=== PATIENT | female | born 1945 | race Caucasian/White ===

== ENCOUNTER 2017-05-06 15:35 | Emergency (ER) | payer OTHER ==
[~2017-05-06] VITALS: Ht 167.6 cm; Wt 80.3 kg
[~2017-05-06 15:35] MED LIST: ACID1TAB7 PO; ALEN70TA5 PO; AMIT10TA PO; AMOX1TAB12 PO; ASPI-496 PO; ASPI-515 PO; ATOR20TA9 PO; CALC-570 PO; CARV12.52 PO; CEFD300C37 PO; CLOP75TA PO; DIPH25TA PO; DOCU100T6 PO; DOXY25TA18 PO; FAMO20TA7 PO; GLUC1TAB55 PO; HYDR-3237 PO; IRBE150T49 PO; LEVO25TA4 PO; LEVO750T26 PO; LORA-446 PO; MELA5TAB19 PO; METF500T9 PO; METR500T PO; MULT-717 PO; OMEG300C PO; OXYC5CAP2 PO; PANT40TA5 PO; SIME125T10 PO; ZONI100C2 PO
[2017-05-06 15:40] VITALS: BP 102/66
[2017-05-06] MEDS ORDERED: KETOROLAC 30 MG/1 ML IVPush ONE (16:30)
[2017-05-06] MEDS ORDERED: SODIUM CHLORIDE FLUSH 10ML SYR IVF ONE (16:30)
[2017-05-06 17:05] LABS: HEMATOCRIT 39.1 % (34.6-47.8); HEMOGLOBIN 13.3 g/dL (11.7-16.4); WHITE BLOOD COUNT 4.8 x10^3/uL (3.4-10)
[2017-05-06] MEDS ORDERED: KETOROLAC 30 MG/1 ML ONE (17:06)
[2017-05-06 17:14] LABS: BLOOD UREA NITROGEN 15 mg/dL (7-18)
[2017-05-06 17:20] LABS: IS PT STATUS REG ER OR PRE ER? YES
[2017-05-06] MEDS ORDERED: HYDROcodone/APAP 5/325 TABLET PO STA (19:44)
[2017-05-06] MEDS ORDERED: HYDROcodone/APAP 5/325 TABLET ONE (20:23)
== END 2017-05-06 20:48 | disposition home or self-care (01) ==
LOC: ED 17:42
DX: G44.201 Tension-type headache, unspecified, intractable (principal); M54.42 Lumbago with sciatica, left side; E11.9 Type 2 diabetes mellitus without complications; I10 Essential (primary) hypertension; J44.9 Chronic obstructive pulmonary disease, unspecified; I25.10 Atherosclerotic heart disease of native coronary artery without angina pectoris
CPT/HCPCS: 36415; 70450; 72110; 80048; 81001; 82040; 84443; 84484; 85025; 85651; 87077; 87086; 87186; 93005; 96374; 99285; J1885

== ENCOUNTER → 2017-08-07 | Outpatient (CLI) | payer OTHER ==
[~2017-08-07] MED LIST changes: +REGADENOSON 0.4 MG/5 ML SYRINGE ONE
== END | disposition home or self-care (01) ==
LOC: CFH 11:44
PROVIDERS: ATTEND Internal Medicine Cardiovascular Disease
DX: I65.29 Occlusion and stenosis of unspecified carotid artery (principal); I10 Essential (primary) hypertension
CPT/HCPCS: 78452; 93017; A9502; J2785

== ENCOUNTER → 2017-08-09 | Outpatient (CLI) | payer OTHER ==
[~2017-08-09] MED LIST changes: -REGADENOSON 0.4 MG/5 ML SYRINGE ONE
== END | disposition home or self-care (01) ==
LOC: CFH 11:45
PROVIDERS: ATTEND Nurse Practitioner Family
DX: Z12.31 Encounter for screening mammogram for malignant neoplasm of breast (principal); Z13.820 Encounter for screening for osteoporosis; M81.0 Age-related osteoporosis without current pathological fracture; Z80.3 Family history of malignant neoplasm of breast
CPT/HCPCS: 77080; G0202

== ENCOUNTER → 2017-08-27 | Outpatient (CLI) | payer OTHER | END | disposition home or self-care (01) | LOC: CVU 13:03 | PROVIDERS: ATTEND Internal Medicine Cardiovascular Disease | DX: I07.1 Rheumatic tricuspid insufficiency (principal); I35.0 Nonrheumatic aortic (valve) stenosis; I65.29 Occlusion and stenosis of unspecified carotid artery; I10 Essential (primary) hypertension; E78.5 Hyperlipidemia, unspecified; I25.3 Aneurysm of heart | CPT/HCPCS: 93306; 93880 ==

== ENCOUNTER → 2017-11-07 | Outpatient (CLI) | payer OTHER | LOC: CFH 08:16 | PROVIDERS: ATTEND Nurse Practitioner Family | DX: J84.9 Interstitial pulmonary disease, unspecified (principal) | CPT/HCPCS: 71250 ==

== ENCOUNTER 2018-03-24 21:23 | Emergency (ER) | payer OTHER ==
[~2018-03-24] VITALS: Ht 167.6 cm; Wt 90.0 kg
[2018-03-24 22:01] LABS: BASOPHILS # (AUTO) 0.01 x10^3/uL (0-0.1); BASOPHILS % (AUTO) 0 % (0-1); EOSINOPHILS % (AUTO) 4 % (1-7); LYMPHOCYTES # (AUTO) 1.38 x10^3/uL (1-3.4); LYMPHOCYTES % (AUTO) 28 % (22-44); MD NO; MEAN CORPUSCULAR HEMOGLOBIN 33.1 pg (27.0-34.8); MEAN CORPUSCULAR HGB CONC 34.4 g/dL (32.4-35.8); MEAN PLATELET VOLUME 8.2 fL (7.4-10.4); MONOCYTES # (AUTO) 0.55 x10^3/uL (0.2-0.8); MONOCYTES % (AUTO) 11 % (2-9); NEUTROPHILS # (AUTO) 2.82 x10^3/uL (1.8-6.8); NEUTROPHILS % (AUTO) 57 % (42-75); PLATELET COUNT 181 x10^3/uL (130-400); RED BLOOD COUNT 3.72 x10^6/uL (3.82-5.3); RED CELL DISTRIBUTION WIDTH 13.8 % (9.6-15.2)
[2018-03-24 22:13] LABS: ALANINE AMINOTRANSFERASE 26 U/L (12-78); ALBUMIN 3.5 g/dL (3.4-5.0); ANION GAP 4 mmol/L (5-15); CALCIUM 8.6 mg/dL (8.5-10.1); CHLORIDE 104 mmol/L (98-107); CREATININE 1.04 mg/dL (0.55-1.02)
[2018-03-24 22:17] LABS: ALKALINE PHOSPHATASE 92 U/L (45-117); BILIRUBIN,TOTAL 0.7 mg/dL (0.2-1.0); TOTAL PROTEIN 6.5 g/dL (6.4-8.2); TROPONIN I < 0.015 ng/mL (0.000-0.045)
[2018-03-24 23:58] VITALS: BP 101/59
== END 2018-03-25 00:03 | disposition home or self-care (01) ==
LOC: ED 21:54
DX: S40.011A Contusion of right shoulder, initial encounter (principal); S70.02XA Contusion of left hip, initial encounter; G89.11 Acute pain due to trauma; M54.2 Cervicalgia; M54.5 Low back pain; J44.9 Chronic obstructive pulmonary disease, unspecified; K21.9 Gastro-esophageal reflux disease without esophagitis; E11.9 Type 2 diabetes mellitus without complications; Z86.718 Personal history of other venous thrombosis and embolism; Z86.73 Personal history of transient ischemic attack (TIA), and cerebral infarction without residual deficits; E78.5 Hyperlipidemia, unspecified; I25.10 Atherosclerotic heart disease of native coronary artery without angina pectoris; I10 Essential (primary) hypertension; Z90.49 Acquired absence of other specified parts of digestive tract; W01.0XXA Fall on same level from slipping, tripping and stumbling without subsequent striking against object, initial encounter; Y93.89 Activity, other specified; Y99.8 Other external cause status; Y92.009 Unspecified place in unspecified non-institutional (private) residence as the place of occurrence of the external cause
CPT/HCPCS: 36415; 70450; 72110; 72125; 80053; 84484; 85025; 93005; 99285

== ENCOUNTER 2018-05-31 16:57 | Emergency (ER) | payer OTHER ==
[~2018-05-31] VITALS: Ht 167.6 cm; Wt 86.7 kg
[2018-05-31 17:44] LABS: INTERNATIONAL NORMALIZED RATIO 1.06 (0.93-1.1); PROTHROMBIN TIME 10.9 Seconds (9.6-11.5)
[2018-05-31 17:45] LABS: ALBUMIN 3.7 g/dL (3.4-5.0); ANION GAP 7 mmol/L (5-15); CHLORIDE 105 mmol/L (98-107); CREATININE 0.89 mg/dL (0.55-1.02)
[2018-05-31 17:54] LABS: BASOPHILS % (AUTO) 0 % (0-1); EOSINOPHILS # (AUTO) 0.21 x10^3/uL (0-0.4); EOSINOPHILS % (AUTO) 2 % (1-7); LYMPHOCYTES # (AUTO) 1.65 x10^3/uL (1-3.4); LYMPHOCYTES % (AUTO) 18 % (22-44); MD NO; MEAN CORPUSCULAR HEMOGLOBIN 32.6 pg (27.0-34.8); MEAN CORPUSCULAR HGB CONC 33.8 g/dL (32.4-35.8); MEAN CORPUSCULAR VOLUME 96.6 fL (80-100); MEAN PLATELET VOLUME 8.8 fL (7.4-10.4); MONOCYTES # (AUTO) 0.64 x10^3/uL (0.2-0.8); MONOCYTES % (AUTO) 7 % (2-9); NEUTROPHILS # (AUTO) 6.56 x10^3/uL (1.8-6.8); NEUTROPHILS % (AUTO) 72 % (42-75); PLATELET COUNT 173 x10^3/uL (130-400); RED BLOOD COUNT 3.92 x10^6/uL (3.82-5.3); RED CELL DISTRIBUTION WIDTH 13.6 % (9.6-15.2)
[2018-05-31 20:18] VITALS: BP 124/53
== END 2018-05-31 20:21 | disposition home or self-care (01) ==
LOC: ED 19:29
DX: S16.1XXA Strain of muscle, fascia and tendon at neck level, initial encounter (principal); S20.219A Contusion of unspecified front wall of thorax, initial encounter; S60.222A Contusion of left hand, initial encounter; I10 Essential (primary) hypertension; E11.9 Type 2 diabetes mellitus without complications; J44.9 Chronic obstructive pulmonary disease, unspecified; K21.9 Gastro-esophageal reflux disease without esophagitis; I25.10 Atherosclerotic heart disease of native coronary artery without angina pectoris; E78.5 Hyperlipidemia, unspecified; W01.0XXA Fall on same level from slipping, tripping and stumbling without subsequent striking against object, initial encounter; Y93.01 Activity, walking, marching and hiking; Y92.410 Unspecified street and highway as the place of occurrence of the external cause; Y99.8 Other external cause status
CPT/HCPCS: 36415; 70450; 71111; 72125; 80048; 82040; 85025; 85610; 85730; 93005; 99285

== ENCOUNTER 2019-09-16 16:26 | Inpatient (IN) | payer MEDICARE, OTHER ==
[~2019-09-16] VITALS: Ht 167.6 cm; Wt 92.1 kg
[~2019-09-16 16:26] MED LIST changes: -ALEN70TA5 PO; +ALEN70TA6 PO; +ATOR20TA37 PO; -ATOR20TA9 PO; +MELA5TAB14 PO; -MELA5TAB19 PO; +METF500T12 PO; -METF500T9 PO
[2019-09-16] MEDS ORDERED: SODIUM CHLORIDE FLUSH 10ML SYR IVF ONE (16:30)
[2019-09-16] MEDS ORDERED: ONDANSETRON 2MG/ML, 2ML IVPush ONE (16:30)
[2019-09-16 16:55] LABS: BASOPHILS # (AUTO) 0.03 x10^3/uL (0-0.1); BASOPHILS % (AUTO) 0 % (0-1); EOSINOPHILS # (AUTO) 0.33 x10^3/uL (0-0.4); EOSINOPHILS % (AUTO) 4 % (1-7); LYMPHOCYTES # (AUTO) 3.01 x10^3/uL (1-3.4); LYMPHOCYTES % (AUTO) 39 % (22-44); MD NO; MEAN CORPUSCULAR HEMOGLOBIN 32.7 pg (27.0-34.8); MEAN CORPUSCULAR VOLUME 99.1 fL (80-100); MEAN PLATELET VOLUME 8.1 fL (7.4-10.4); MONOCYTES # (AUTO) 0.89 x10^3/uL (0.2-0.8); MONOCYTES % (AUTO) 11 % (2-9); NEUTROPHILS # (AUTO) 3.53 x10^3/uL (1.8-6.8); NEUTROPHILS % (AUTO) 45 % (42-75); PLATELET COUNT 209 x10^3/uL (130-400); RED BLOOD COUNT 4.52 x10^6/uL (3.82-5.3); RED CELL DISTRIBUTION WIDTH 14.1 % (9.6-15.2)
[2019-09-16 16:58] LABS: INTERNATIONAL NORMALIZED RATIO 0.96 (0.93-1.1); PROTHROMBIN TIME 10.2 Seconds (9.6-11.5)
[2019-09-16] MEDS ORDERED: PLEASE ENTER HEIGHT AND WEIGHT MC SCH (17:00)
[2019-09-16 17:01] LABS: ALBUMIN 3.3 g/dL (3.4-5.0); ANION GAP 9 mmol/L (5-15); CALCIUM 8.3 mg/dL (8.5-10.1); CHLORIDE 108 mmol/L (98-107)
[2019-09-16] MEDS ORDERED: RIVA20TA PO (17:01)
[2019-09-16 17:06] LABS: ALANINE AMINOTRANSFERASE 14 U/L (12-78); ALKALINE PHOSPHATASE 90 U/L (45-117); BILIRUBIN,TOTAL 0.6 mg/dL (0.2-1.0); CREATININE 0.95 mg/dL (0.55-1.02); TOTAL PROTEIN 6.7 g/dL (6.4-8.2); TROPONIN I < 0.015 ng/mL (0.000-0.045)
--- NOTE | 2019-09-16 18:00 | NUR ---
PT MOVED FROM TRAUMA 3 TO ROOM 15 AND CARE ASSUMED. PT ON ALL MONITORS, NSR, VSS, NAD NOTED. CALL LIGHT W/I REACH
--- NOTE | 2019-09-16 18:33 | NUR ---
dr bell spoke with dr lloyd
--- NOTE | 2019-09-16 18:58 | NUR ---
STEPHANAR RPT TO MARCIO RN'S.
[2019-09-16] MEDS ORDERED: RIVAROXABAN 10 MG TABLET PO ONE (19:00)
[2019-09-16] MEDS ORDERED: LORazepam 0.5MG TABLET PO PRN (20:00)
[2019-09-16] MEDS ORDERED: DOCUSATE 100 MG CAPSULE PO PRN (20:00)
[2019-09-16] MEDS ORDERED: GABAPENTIN 300 MG CAPSULE PO PRN (20:00)
[2019-09-16] MEDS ORDERED: ONDANSETRON 2MG/ML, 2ML IVPush PRN (20:00)
[2019-09-16] MEDS ORDERED: ACETAMINOPHEN 325 MG TABLET PO PRN (20:00)
[2019-09-16] MEDS ORDERED: LABETALOL 5MG/ML, 20ML IVPush PRN (20:00)
[2019-09-16 20:08] VITALS: BP 122/55
[2019-09-16] MEDS ORDERED: SIMETHICONE 125 MG CHEW TAB PO PRN ×2 (20:30→21:00)
[2019-09-16] MEDS: PANTOPROZOLE 40MG TABLET PO SCH (20:40)
[2019-09-16] MEDS: ATORVASTATIN 20 MG TABLET PO SCH (20:40)
[2019-09-16] MEDS: LACTOBACILLUS CHEW TABLET PO SCH (20:40)
[2019-09-16] MEDS: metFORMIN XR 500 MG TAB.ER.24H PO SCH (20:40)
[2019-09-16] MEDS: INSULIN LISPRO 100 UNITS/ML, PEN SQ-INSULIN SCH (20:52)
[2019-09-16] MEDS: ZONISAMIDE 50 MG CAPSULE PO SCH (21:00)
[2019-09-16] MEDS ORDERED: RIVAROXABAN 20 MG TABLET PO SCH (21:00)
[2019-09-16] MEDS: TEMAZEPAM 15 MG CAPSULE PO PRN (23:45)
[2019-09-16 23:58] LABS: TROPONIN I 0.061 ng/mL (0.000-0.045)
[2019-09-17 00:50] VITALS: BP 128/70
[2019-09-17] MEDS: IBUPROFEN 600 MG TABLET PO PRN (04:15)
[2019-09-17 05:33] LABS: BASOPHILS # (AUTO) 0.01 x10^3/uL (0-0.1); BASOPHILS % (AUTO) 0 % (0-1); EOSINOPHILS # (AUTO) 0.33 x10^3/uL (0-0.4); EOSINOPHILS % (AUTO) 5 % (1-7); LYMPHOCYTES # (AUTO) 2.06 x10^3/uL (1-3.4); LYMPHOCYTES % (AUTO) 32 % (22-44); MD NO; MEAN CORPUSCULAR HEMOGLOBIN 32.6 pg (27.0-34.8); MEAN CORPUSCULAR HGB CONC 32.9 g/dL (32.4-35.8); MEAN PLATELET VOLUME 8.3 fL (7.4-10.4); MONOCYTES # (AUTO) 0.63 x10^3/uL (0.2-0.8); MONOCYTES % (AUTO) 10 % (2-9); NEUTROPHILS % (AUTO) 53 % (42-75); PLATELET COUNT 188 x10^3/uL (130-400); RED CELL DISTRIBUTION WIDTH 14.1 % (9.6-15.2)
[2019-09-17 05:47] LABS: CHLORIDE 105 mmol/L (98-107)
[2019-09-17] MEDS: PANTOPROZOLE 40MG TABLET PO SCH ×2 (05:53→16:56)
[2019-09-17] MEDS: LEVOTHYROXINE 25 MCG TABLET PO SCH (05:53)
[2019-09-17 05:56] LABS: ANION GAP 6 mmol/L (5-15); CALCIUM 8.8 mg/dL (8.5-10.1); CREATININE 0.75 mg/dL (0.55-1.02); TROPONIN I 0.055 ng/mL (0.000-0.045)
[2019-09-17] MEDS: LIDODERM 5% PATCH TD PRN ×2 (06:03→06:08)
[2019-09-17] MEDS ORDERED: ALENDRONATE 70 MG TABLET PO SCH (06:30)
[2019-09-17] MEDS: INSULIN LISPRO 100 UNITS/ML, PEN SQ-INSULIN SCH ×4 (07:00→20:55)
[2019-09-17 07:48] VITALS: BP 122/85
[2019-09-17] MEDS ORDERED: TEMPLATE NON-FORMULARY MED. (Glucosamine/D3/Boswellia Serra** (Osteo Bi-Flex Caplet**) 1 T PO SCH (09:00)
[2019-09-17] MEDS: AMIODARONE 200 MG TABLET PO SCH ×3 (09:00→20:52)
[2019-09-17] MEDS: MULTIVITAMINS/MINERALS TABLET PO SCH (09:13)
[2019-09-17] MEDS: metFORMIN XR 500 MG TAB.ER.24H PO SCH ×2 (09:14→20:51)
[2019-09-17] MEDS: ASPIRIN 81 MG TABLET EC PO SCH (09:14)
[2019-09-17] MEDS: CALCIUM/VITAMIN D3 250-125 TABLET PO SCH (09:14)
[2019-09-17] MEDS: LACTOBACILLUS CHEW TABLET PO SCH ×3 (09:14→20:51)
[2019-09-17 12:37] VITALS: BP 128/85
[2019-09-17] MEDS: RIVAROXABAN 20 MG TABLET PO SCH (16:56)
[2019-09-17] MEDS ORDERED: RIVAROXABAN 15 MG TABLET PO SCH (17:00)
[2019-09-17] MEDS ORDERED: RIVAROXABAN 20 MG TABLET PO SCH (17:00)
[2019-09-17 19:30] VITALS: BP 134/81
[2019-09-17] MEDS: ATORVASTATIN 20 MG TABLET PO SCH (20:51)
[2019-09-17] MEDS: TEMAZEPAM 15 MG CAPSULE PO PRN (20:51)
[2019-09-17] MEDS: ZONISAMIDE 50 MG CAPSULE PO SCH (20:51)
[2019-09-18 01:22] VITALS: BP 132/62
[2019-09-18] MEDS: PANTOPROZOLE 40MG TABLET PO SCH ×2 (05:56→17:24)
[2019-09-18] MEDS: LEVOTHYROXINE 25 MCG TABLET PO SCH (05:56)
[2019-09-18 06:41] VITALS: BP 109/77
[2019-09-18] MEDS: INSULIN LISPRO 100 UNITS/ML, PEN SQ-INSULIN SCH ×3 (08:07→16:00)
[2019-09-18] MEDS ORDERED: AMIODARONE 200 MG TABLET PO SCH (09:00)
[2019-09-18] MEDS: metFORMIN XR 500 MG TAB.ER.24H PO SCH (09:34)
[2019-09-18] MEDS: CALCIUM/VITAMIN D3 250-125 TABLET PO SCH (09:34)
[2019-09-18] MEDS: ASPIRIN 81 MG TABLET EC PO SCH (09:34)
[2019-09-18] MEDS: MULTIVITAMINS/MINERALS TABLET PO SCH (09:34)
[2019-09-18] MEDS: LACTOBACILLUS CHEW TABLET PO SCH ×2 (09:34→17:26)
[2019-09-18] MEDS: LIDODERM 5% PATCH TD PRN (12:30)
[2019-09-18] MEDS: IBUPROFEN 600 MG TABLET PO PRN (12:31)
[2019-09-18 13:30] VITALS: BP 104/69
[2019-09-18] MEDS ORDERED: AMIO200T42 PO (14:00)
[2019-09-18] MEDS ORDERED: ATOR20TA37 PO (16:14)
[2019-09-18] MEDS ORDERED: RIVA20TA PO (16:14)
[2019-09-18] MEDS ORDERED: ZONI100C2 PO (16:14)
[2019-09-18] MEDS ORDERED: ALEN70TA6 PO (16:14)
[2019-09-18] MEDS ORDERED: LEVO25TA4 PO (16:14)
[2019-09-18] MEDS ORDERED: METF500T12 PO (16:14)
[2019-09-18] MEDS: RIVAROXABAN 20 MG TABLET PO SCH (17:26)
== END 2019-09-18 18:28 | disposition home health service (06) | DRG 309 ==
LOC: ED 18:10 → EDIP 18:16 → ED 19:16 → 5SO 19:53
PROVIDERS: ADMIT Internal Medicine; ATTEND Hospitalist
DX: I48.0 Paroxysmal atrial fibrillation (principal); D68.59 Other primary thrombophilia; I25.3 Aneurysm of heart; I50.32 Chronic diastolic (congestive) heart failure; F33.9 Major depressive disorder, recurrent, unspecified; J98.11 Atelectasis; E78.5 Hyperlipidemia, unspecified; E11.65 Type 2 diabetes mellitus with hyperglycemia; E11.51 Type 2 diabetes mellitus with diabetic peripheral angiopathy without gangrene; E03.9 Hypothyroidism, unspecified; G47.33 Obstructive sleep apnea (adult) (pediatric); I11.0 Hypertensive heart disease with heart failure; I25.10 Atherosclerotic heart disease of native coronary artery without angina pectoris; I34.0 Nonrheumatic mitral (valve) insufficiency; K21.9 Gastro-esophageal reflux disease without esophagitis; M81.0 Age-related osteoporosis without current pathological fracture; Z79.01 Long term (current) use of anticoagulants; Z80.0 Family history of malignant neoplasm of digestive organs; Z86.73 Personal history of transient ischemic attack (TIA), and cerebral infarction without residual deficits; Z90.710 Acquired absence of both cervix and uterus; Z99.81 Dependence on supplemental oxygen; E87.6 Hypokalemia; C44.90 Unspecified malignant neoplasm of skin, unspecified; I70.8 Atherosclerosis of other arteries; Z87.891 Personal history of nicotine dependence; R00.0 Tachycardia, unspecified
CPT/HCPCS: 36415; 71045; 80048; 80053; 82962; 83735; 83880; 84439; 84443; 84484; 85025; 85610; 93005; 93306; 93356; 96374; G0378; J2405

== ENCOUNTER 2020-02-02 03:16 | Emergency (ER) | payer MEDICARE ==
[~2020-02-02] VITALS: Ht 167.6 cm; Wt 84.0 kg
[~2020-02-02 03:16] MED LIST changes: +AMIO200T42 PO; +METF-754 PO; -METF500T12 PO; +RIVA20TA PO; -ZONI100C2 PO; +ZONI100C29 PO
[2020-02-02 03:21] VITALS: BP 143/56
[2020-02-02] MEDS ORDERED: LIDOCAINE-MPF 1%, 5ML ONE (03:26)
[2020-02-02] MEDS ORDERED: LIDOCAINE-MPF 1%, 5ML INFIL ONE (03:30)
[2020-02-02] MEDS ORDERED: DIPH,PERTUSS(ACELL),TET VAC/PF 0.5 ML IM-VACC ONE ×2 (03:30→05:14)
--- NOTE | 2020-02-02 04:15 | NUR ---
EMT AT BEDSIDE CLEANING WOUND
--- NOTE | 2020-02-02 04:22 | NUR ---
XRAY AT BEDSIDE WITH PATIENT.
--- NOTE | 2020-02-02 04:41 | NUR ---
PATIENT UP TO RESTROOM, STEADY GAIT. TOLERATED WELL.
[2020-02-02] MEDS ORDERED: ACETAMINOPHEN 325 MG TABLET ONE (04:51)
--- NOTE | 2020-02-02 04:54 | NUR ---
PROVIDER AT BEDSIDE WITH PATIENT
--- NOTE | 2020-02-02 04:57 | NUR ---
PATIENT GIVEN TYLENOL 650MG PER PROVIDER VERBAL ORDER.
--- NOTE | 2020-02-02 05:24 | NUR ---
EKG COMPLETED AT BEDSIDE. PATIENT TOLERATED WELL.
== END 2020-02-02 06:21 ==
LOC: ED 06:15
DX: S68.112A Complete traumatic metacarpophalangeal amputation of right middle finger, initial encounter (principal); I10 Essential (primary) hypertension; E11.9 Type 2 diabetes mellitus without complications; I48.91 Unspecified atrial fibrillation; W23.1XXA Caught, crushed, jammed, or pinched between stationary objects, initial encounter; Y93.89 Activity, other specified; Y92.59 Other trade areas as the place of occurrence of the external cause; Y99.8 Other external cause status
CPT/HCPCS: 12001; 90471; 90715; 93005; 99283

== ENCOUNTER 2020-02-03 16:04 | Emergency (ER) | payer MEDICARE ==
[~2020-02-03] VITALS: Ht 167.6 cm; Wt 91.2 kg
[2020-02-03 16:05] VITALS: BP 158/71
--- NOTE | 2020-02-03 16:29 | NUR ---
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 Bleeding however has not stopped. was seen here. LAC DRESSED BY PROVIDER/SPLINT APPLIED. NO NEED TO UPDATE TDAP (RECENTLY IMMUNIZED)
== END 2020-02-03 17:01 | disposition home or self-care (01) ==
LOC: ED 16:52
DX: S61.212A Laceration without foreign body of right middle finger without damage to nail, initial encounter (principal); K21.9 Gastro-esophageal reflux disease without esophagitis; I48.91 Unspecified atrial fibrillation; J44.9 Chronic obstructive pulmonary disease, unspecified; I25.10 Atherosclerotic heart disease of native coronary artery without angina pectoris; E78.5 Hyperlipidemia, unspecified; Z90.49 Acquired absence of other specified parts of digestive tract; Z86.73 Personal history of transient ischemic attack (TIA), and cerebral infarction without residual deficits; Z87.891 Personal history of nicotine dependence; Z86.718 Personal history of other venous thrombosis and embolism; X58.XXXA Exposure to other specified factors, initial encounter; Y93.89 Activity, other specified; Y92.89 Other specified places as the place of occurrence of the external cause; Y99.8 Other external cause status
CPT/HCPCS: 29130; 99283

== ENCOUNTER 2020-04-16 20:50 | Inpatient (IN) | payer MEDICARE ==
[~2020-04-16] VITALS: Ht 167.6 cm; Wt 97.0 kg
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
[2020-04-16 21:43] LABS: BASOPHILS # (AUTO) 0.02 x10^3/uL (0-0.1); BASOPHILS % (AUTO) 0 % (0-1); EOSINOPHILS % (AUTO) 3 % (1-7); LYMPHOCYTES # (AUTO) 1.56 x10^3/uL (1-3.4); LYMPHOCYTES % (AUTO) 25 % (22-44); MD NO; MEAN CORPUSCULAR HEMOGLOBIN 33.2 pg (27.0-34.8); MEAN CORPUSCULAR HGB CONC 33.5 g/dL (32.4-35.8); MEAN CORPUSCULAR VOLUME 99.1 fL (80-100); MEAN PLATELET VOLUME 8.8 fL (7.4-10.4); MONOCYTES # (AUTO) 0.65 x10^3/uL (0.2-0.8); MONOCYTES % (AUTO) 10 % (2-9); NEUTROPHILS # (AUTO) 3.81 x10^3/uL (1.8-6.8); NEUTROPHILS % (AUTO) 61 % (42-75); PLATELET COUNT 217 x10^3/uL (130-400); RED BLOOD COUNT 3.99 x10^6/uL (3.82-5.3); RED CELL DISTRIBUTION WIDTH 13.8 % (9.6-15.2)
[2020-04-16 21:52] LABS: ALANINE AMINOTRANSFERASE 24 U/L (12-78); ALBUMIN 3.6 g/dL (3.4-5.0); ANION GAP 4 mmol/L (5-15); CALCIUM 8.8 mg/dL (8.5-10.1); CHLORIDE 105 mmol/L (98-107); CREATININE 1.06 mg/dL (0.55-1.02)
[2020-04-16 21:56] LABS: ALKALINE PHOSPHATASE 84 U/L (45-117); BILIRUBIN,TOTAL 0.6 mg/dL (0.2-1.0); TOTAL PROTEIN 6.7 g/dL (6.4-8.2); TROPONIN I < 0.015 ng/mL (0.000-0.045)
[2020-04-16] MEDS ORDERED: LORazepam 0.5MG TABLET ONE (22:27)
[2020-04-16] MEDS ORDERED: LORazepam 2 MG/ML, 1ML IVPush ONE (22:30)
[2020-04-16] MEDS ORDERED: LORazepam 0.5MG TABLET PO ONE (22:30)
--- NOTE | 2020-04-16 22:30 | NUR ---
RECEIVED ORDER FOR ATIVAN IV, NOTIFIED PT DOES NOT HAVE PIV IN PLACE. RECEIVED VERBAL ORDER FOR ATIVAN 0.5MG TAB PO ONCE. ORDER PLACED AND CARRIED OUT.
--- NOTE | 2020-04-16 23:00 | NUR ---
REPORT GIVEN TO ANA LAUREN.
[2020-04-16] MEDS ORDERED: hydrALAzine 20 MG/ML, 1ML IVPush PRN (23:30)
[2020-04-16] MEDS ORDERED: SIMETHICONE 125 MG CHEW TAB PO PRN (23:30)
[2020-04-16] MEDS ORDERED: ONDANSETRON 2MG/ML, 2ML IVPush PRN (23:30)
[2020-04-16] MEDS ORDERED: DOXYCYCLINE 100 MG in DEXTROSE 5% 250 ML IV SCH (23:30)
[2020-04-16] MEDS ORDERED: morphine SULFATE 10 MG/ML, 1ML IVPush PRN (23:30)
[2020-04-17 00:02] VITALS: BP 95/60
[2020-04-17] MEDS: AMIODARONE 200 MG TABLET PO SCH ×3 (00:58→20:24)
[2020-04-17] MEDS: PANTOPRAZOLE 40MG TABLET PO SCH ×3 (00:58→20:24)
[2020-04-17] MEDS: DOXYLAMINE 25MG TABLET PO SCH ×2 (00:58→20:24)
[2020-04-17] MEDS: ATORVASTATIN 20 MG TABLET PO SCH ×2 (00:59→20:24)
[2020-04-17] MEDS: ZONISAMIDE 50 MG CAPSULE PO SCH ×2 (01:01→20:24)
[2020-04-17] MEDS: CEFTRIAXONE PMX 1GM/50ML 50 ML IV SCH (01:05)
[2020-04-17 02:00] VITALS: BP 95/60
[2020-04-17 04:25] LABS: BASOPHILS # (AUTO) 0.02 x10^3/uL (0-0.1); BASOPHILS % (AUTO) 0 % (0-1); EOSINOPHILS % (AUTO) 3 % (1-7); LYMPHOCYTES # (AUTO) 1.46 x10^3/uL (1-3.4); LYMPHOCYTES % (AUTO) 24 % (22-44); MD NO; MEAN CORPUSCULAR HEMOGLOBIN 32.7 pg (27.0-34.8); MEAN CORPUSCULAR HGB CONC 32.9 g/dL (32.4-35.8); MEAN CORPUSCULAR VOLUME 99.3 fL (80-100); MEAN PLATELET VOLUME 9.1 fL (7.4-10.4); MONOCYTES # (AUTO) 0.55 x10^3/uL (0.2-0.8); MONOCYTES % (AUTO) 9 % (2-9); NEUTROPHILS # (AUTO) 3.83 x10^3/uL (1.8-6.8); NEUTROPHILS % (AUTO) 63 % (42-75); PLATELET COUNT 182 x10^3/uL (130-400); RED BLOOD COUNT 3.92 x10^6/uL (3.82-5.3); RED CELL DISTRIBUTION WIDTH 13.4 % (9.6-15.2)
[2020-04-17 04:34] LABS: ANION GAP 3 mmol/L (5-15); CALCIUM 8.7 mg/dL (8.5-10.1); CHLORIDE 106 mmol/L (98-107); CHOLESTEROL, TOTAL 135 mg/dL (140-239)
[2020-04-17 04:38] LABS: CHOL/HDL RATIO 3.1; HDL CHOL % 33 % (28-40); HDL CHOLESTEROL (DIRECT) 44 mg/dL (40-60); LDL CHOLESTEROL,CALCULATED 71 mg/dL (54-169); LDL/HDL RATIO 1.6 (0.5-3.0); TRIGLYCERIDES 100 mg/dL (50-200); TROPONIN I < 0.015 ng/mL (0.000-0.045); VLDL CHOLESTEROL 20 mg/dL (0-25)
[2020-04-17 06:54] VITALS: BP 105/69
[2020-04-17] MEDS: INSULIN LISPRO 100 UNITS/ML, PEN SQ-INSULIN SCH ×4 (07:00→20:25)
[2020-04-17] MEDS: ASPIRIN 81 MG TABLET EC PO SCH (08:24)
[2020-04-17] MEDS: LEVOTHYROXINE 25 MCG TABLET PO SCH (08:27)
[2020-04-17 08:29] VITALS: BP 108/70
[2020-04-17] MEDS: SIMETHICONE 125 MG CHEW TAB PO SCH ×4 (10:25→20:24)
[2020-04-17 11:57] LABS: TROPONIN I < 0.015 ng/mL (0.000-0.045)
[2020-04-17 16:37] VITALS: BP 102/49
[2020-04-17 20:09] VITALS: BP 100/65
[2020-04-17] MEDS: DOXYCYCLINE 100MG TABLET PO SCH (20:24)
[2020-04-17] MEDS: RIVAROXABAN 20 MG TABLET PO SCH (20:24)
[2020-04-18 00:07] VITALS: BP 91/63
[2020-04-18] MEDS: ACETAMINOPHEN 325 MG TABLET PO PRN ×2 (00:13→14:40)
[2020-04-18 05:44] VITALS: BP 146/69
[2020-04-18] MEDS: INSULIN LISPRO 100 UNITS/ML, PEN SQ-INSULIN SCH ×4 (07:00→21:22)
[2020-04-18 07:36] VITALS: BP 124/81
[2020-04-18] MEDS: PANTOPRAZOLE 40MG TABLET PO SCH ×2 (07:50→21:19)
[2020-04-18] MEDS: DOXYCYCLINE 100MG TABLET PO SCH ×2 (07:50→21:21)
[2020-04-18] MEDS: AMIODARONE 200 MG TABLET PO SCH ×2 (07:51→21:18)
[2020-04-18] MEDS: SIMETHICONE 125 MG CHEW TAB PO SCH ×4 (07:51→21:16)
[2020-04-18] MEDS: LEVOTHYROXINE 25 MCG TABLET PO SCH (07:51)
[2020-04-18] MEDS: ASPIRIN 81 MG TABLET EC PO SCH (07:51)
[2020-04-18] MEDS ORDERED: METH4TAB2 PO ×2 (09:41)
[2020-04-18] MEDS ORDERED: CEFD300C37 PO ×2 (09:41)
[2020-04-18] MEDS ORDERED: LACT1CAP35 PO (09:41)
[2020-04-18] MEDS ORDERED: DOXY100T PO ×2 (09:41)
[2020-04-18 12:13] VITALS: BP 100/66
[2020-04-18 15:34] VITALS: BP 94/57
[2020-04-18 16:16] LABS: TROPONIN I < 0.015 ng/mL (0.000-0.045)
[2020-04-18 21:04] VITALS: BP 92/52
[2020-04-18] MEDS: ZONISAMIDE 50 MG CAPSULE PO SCH (21:17)
[2020-04-18] MEDS: DOXYLAMINE 25MG TABLET PO SCH (21:18)
[2020-04-18] MEDS: RIVAROXABAN 20 MG TABLET PO SCH (21:19)
[2020-04-18] MEDS: ATORVASTATIN 20 MG TABLET PO SCH (21:22)
[2020-04-18 21:30] LABS: TROPONIN I < 0.015 ng/mL (0.000-0.045)
[2020-04-18] MEDS: CEFTRIAXONE PMX 1GM/50ML 50 ML IV SCH ×2 (23:33)
[2020-04-19 01:30] VITALS: BP 91/65
[2020-04-19 06:37] VITALS: BP 102/66
[2020-04-19] MEDS: LEVOTHYROXINE 25 MCG TABLET PO SCH (09:04)
[2020-04-19] MEDS: SIMETHICONE 125 MG CHEW TAB PO SCH ×4 (09:04→20:28)
[2020-04-19] MEDS: AMIODARONE 200 MG TABLET PO SCH ×2 (09:04→20:29)
[2020-04-19] MEDS: PANTOPRAZOLE 40MG TABLET PO SCH ×2 (09:04→20:29)
[2020-04-19] MEDS: DOXYCYCLINE 100MG TABLET PO SCH ×2 (09:04→20:29)
[2020-04-19] MEDS: ASPIRIN 81 MG TABLET EC PO SCH (09:05)
[2020-04-19] MEDS: INSULIN LISPRO 100 UNITS/ML, PEN SQ-INSULIN SCH ×4 (09:07→21:00)
[2020-04-19 12:44] VITALS: BP 122/81
[2020-04-19] MEDS: SERTRALINE 100MG TABLET PO SCH (16:22)
[2020-04-19 20:00] VITALS: BP 86/54
[2020-04-19] MEDS: RIVAROXABAN 20 MG TABLET PO SCH (20:28)
[2020-04-19] MEDS: DOXYLAMINE 25MG TABLET PO SCH (20:28)
[2020-04-19] MEDS: ZONISAMIDE 50 MG CAPSULE PO SCH (20:28)
[2020-04-19] MEDS: ATORVASTATIN 20 MG TABLET PO SCH (20:29)
[2020-04-19] MEDS: CEFTRIAXONE PMX 1GM/50ML 50 ML IV SCH (23:28)
[2020-04-20 01:58] VITALS: BP 104/63
[2020-04-20] MEDS: INSULIN LISPRO 100 UNITS/ML, PEN SQ-INSULIN SCH ×2 (07:00→11:31)
[2020-04-20 09:30] VITALS: BP 133/61
[2020-04-20] MEDS: LEVOTHYROXINE 25 MCG TABLET PO SCH (09:41)
[2020-04-20] MEDS: PANTOPRAZOLE 40MG TABLET PO SCH (09:41)
[2020-04-20] MEDS: SERTRALINE 100MG TABLET PO SCH (09:42)
[2020-04-20] MEDS: SIMETHICONE 125 MG CHEW TAB PO SCH (09:42)
[2020-04-20] MEDS: DOXYCYCLINE 100MG TABLET PO SCH (09:42)
[2020-04-20] MEDS: ASPIRIN 81 MG TABLET EC PO SCH (09:42)
[2020-04-20] MEDS: AMIODARONE 200 MG TABLET PO SCH (09:42)
[2020-04-20] MEDS ORDERED: SERT100T32 PO (13:09)
[2020-04-20] MEDS ORDERED: CEFD300C37 PO (13:32)
[2020-04-20] MEDS ORDERED: DOXY100T PO (13:32)
== END 2020-04-20 14:19 | DRG 190 ==
LOC: ED 22:56 → EDIP 23:28 → 5SO 23:56 → OBSVTOIN 04-19 13:58
PROVIDERS: ADMIT Family Medicine; ATTEND Family Medicine
DX: J44.0 Chronic obstructive pulmonary disease with (acute) lower respiratory infection (principal); J18.9 Pneumonia, unspecified organism; F33.1 Major depressive disorder, recurrent, moderate; I50.32 Chronic diastolic (congestive) heart failure; J96.10 Chronic respiratory failure, unspecified whether with hypoxia or hypercapnia; J44.1 Chronic obstructive pulmonary disease with (acute) exacerbation; I25.10 Atherosclerotic heart disease of native coronary artery without angina pectoris; R00.2 Palpitations; F41.9 Anxiety disorder, unspecified; I11.0 Hypertensive heart disease with heart failure; I48.0 Paroxysmal atrial fibrillation; E78.5 Hyperlipidemia, unspecified; E03.9 Hypothyroidism, unspecified; Z80.0 Family history of malignant neoplasm of digestive organs; E11.9 Type 2 diabetes mellitus without complications; Z83.3 Family history of diabetes mellitus; Z82.49 Family history of ischemic heart disease and other diseases of the circulatory system; I35.8 Other nonrheumatic aortic valve disorders; I49.3 Ventricular premature depolarization; Z86.73 Personal history of transient ischemic attack (TIA), and cerebral infarction without residual deficits; Z87.891 Personal history of nicotine dependence; K21.9 Gastro-esophageal reflux disease without esophagitis; Z86.718 Personal history of other venous thrombosis and embolism; Z90.49 Acquired absence of other specified parts of digestive tract; M81.0 Age-related osteoporosis without current pathological fracture; I34.0 Nonrheumatic mitral (valve) insufficiency
CPT/HCPCS: 36415; 71045; 80048; 80053; 80061; 82962; 83036; 83735; 83880; 84100; 84443; 84484; 85025; 93005; 93306; G0378; J0696; J7060; J1815; J7512

== ENCOUNTER 2020-06-24 08:12 | Outpatient (CLI) | payer MEDICARE ==
[~2020-06-24 08:12] MED LIST changes: -ALEN70TA6 PO; +ALEN70TA66 PO; +DOXY100T PO; +LACT1CAP35 PO; +METH4TAB2 PO; -PANT40TA5 PO; +PANT40TA6 PO; +SERT100T32 PO
[2020-06-24] MEDS ORDERED: OMNIPAQUE 350 MG/ML, 100ML BOTTLE ONE (11:18)
== END 2020-06-24 23:59 | disposition home or self-care (01) ==
LOC: CFH 08:12
PROVIDERS: ATTEND Family Medicine
DX: Z12.31 Encounter for screening mammogram for malignant neoplasm of breast (principal); N95.8 Other specified menopausal and perimenopausal disorders; I65.23 Occlusion and stenosis of bilateral carotid arteries; M81.0 Age-related osteoporosis without current pathological fracture
CPT/HCPCS: 70498; 77063; 77067; 77080; 82565; Q9967

== ENCOUNTER 2020-12-14 17:16 | Observation (INO) | payer MEDICARE ==
[~2020-12-14] VITALS: Ht 167.6 cm; Wt 111.5 kg
[~2020-12-14 17:16] MED LIST changes: -ALEN70TA66 PO; +ALEN70TA77 PO; -ASPI-515 PO; +ASPI-963 PO
--- NOTE | 2020-12-14 18:29 | NUR ---
PT CAME IN CO "HEADACHE AND NOT FEELING WELL. PT STATES SHE HAD A GLF FALL A WEEK AGO AND DOESNT KNOW IF SHE LOC OR NOT. PT WAS ADMITTED TO [facility] FOR A NIGHT FOR OBS" . PT HAS HX OF AFIB. TAKES ELIQUIS. EKG COMPLETE. PT RESTING IN [facility].
[2020-12-14] MEDS ORDERED: SODIUM CHLORIDE 0.9% 1,000ML IVBOLUS ONE (18:30)
[2020-12-14] MEDS ORDERED: ALBUTEROL/IPRATROPIUM 2.5MG/0.5MG, 3 ML NPPB ONE (18:30)
[2020-12-14] MEDS ORDERED: ALBUTEROL SULFATE 2.5MG/0.5ML ONE ×2 (18:32→18:33)
--- NOTE | 2020-12-14 18:45 | NUR ---
PT MEDICATED PER MAR
[2020-12-14] MEDS ORDERED: SODIUM CHLORIDE FLUSH 10ML SYR IVF ONE (19:00)
[2020-12-14 19:01] LABS: BASOPHILS % (AUTO) 1 % (0-1); EOSINOPHILS % (AUTO) 4 % (1-7); LYMPHOCYTES % (AUTO) 33 % (22-44); MEAN CORPUSCULAR HEMOGLOBIN 33.6 pg (27.0-34.8); MEAN CORPUSCULAR HGB CONC 33.6 g/dL (32.4-35.8); MEAN PLATELET VOLUME 9.1 fL (7.4-10.4); MONOCYTES % (AUTO) 10 % (2-9); NEUTROPHILS % (AUTO) 52 % (42-75); PLATELET COUNT 200 x10^3/uL (130-400); RED BLOOD COUNT 4.07 x10^6/uL (3.82-5.3); RED CELL DISTRIBUTION WIDTH 13.2 % (9.6-15.2)
[2020-12-14 19:13] LABS: ALBUMIN 3.8 g/dL (3.4-5.0); ANION GAP 4 mmol/L (5-15); CALCIUM 8.6 mg/dL (8.5-10.1); CHLORIDE 106 mmol/L (98-107); MD NO
[2020-12-14 19:19] LABS: ALANINE AMINOTRANSFERASE 25 U/L (12-78); ALKALINE PHOSPHATASE 74 U/L (45-117); BILIRUBIN,TOTAL 0.7 mg/dL (0.2-1.0); CREATININE 0.84 mg/dL (0.55-1.02)
[2020-12-14 19:50] LABS: MICROSCOPIC NOT IND
--- NOTE | 2020-12-14 20:25 | NUR ---
TOOK PT FOR A ROAD TEST WITHOUT O2. PT O2 SAT DROPPED TO 83-85%. PT REPORTS FEELING WEAK AND SOB DURING ROAD TEST. BP WHILE RESTING IN GURNEY 101/67. UPON STANDING BP DROPPED TO 86/63 AND AFTER A MINUTE BP JARED TO 97/67 WHILE STANDING. PT RESTING IN GURNEY. SIDE RAILS UP. IS BEDSIDE FOR [facility]
[2020-12-14] MEDS ORDERED: SODIUM CHLORIDE 0.9% 1,000 ML IV ONE (20:30)
[2020-12-14] MEDS ORDERED: POLYETHYLENE GLYCOL 17 GM PACKET PO PRN (21:00)
[2020-12-14] MEDS ORDERED: SODIUM CHLORIDE 0.9% 1,000 ML IV SCH (21:00)
[2020-12-14] MEDS ORDERED: SIMETHICONE 125 MG CHEW TAB PO PRN (21:00)
[2020-12-14] MEDS ORDERED: ONDANSETRON ODT 4 MG PO PRN (21:00)
[2020-12-14] MEDS ORDERED: BISACODYL 10 MG SUPP PR PRN (21:00)
[2020-12-14] MEDS ORDERED: RIVAROXABAN 20 MG TABLET PO SCH (21:00)
[2020-12-14] MEDS ORDERED: RIVAROXABAN 15 MG TABLET PO SCH (22:18)
[2020-12-14] MEDS ORDERED: HYDROcodone/APAP 5/325 TABLET PO PRN (23:30)
[2020-12-14] MEDS: LACTOBACILLUS CHEW TABLET PO SCH (23:38)
[2020-12-14] MEDS: ATORVASTATIN 20 MG TABLET PO SCH (23:38)
[2020-12-14] MEDS: metFORMIN XR 500 MG TAB.ER.24H PO SCH (23:38)
[2020-12-14] MEDS: AMIODARONE 200 MG TABLET PO SCH (23:38)
[2020-12-14] MEDS: PANTOPRAZOLE 40MG TABLET PO SCH (23:41)
[2020-12-15 00:09] VITALS: BP 86/55
[2020-12-15 01:04] VITALS: BP 126/79
[2020-12-15] MEDS ORDERED: OXYC5TAB2 PO (02:03)
[2020-12-15] MEDS ORDERED: CHOL500051 PO (02:03)
[2020-12-15] MEDS ORDERED: PROP1DRO6 OTIC (02:03)
[2020-12-15] MEDS ORDERED: GABA-826 PO (02:03)
[2020-12-15] MEDS ORDERED: ACET500T76 PO (02:03)
[2020-12-15] MEDS ORDERED: LEVO100V8 PO (02:03)
[2020-12-15] MEDS ORDERED: BACL-19 PO (02:03)
[2020-12-15] MEDS ORDERED: GLUC-165 PO (02:03)
[2020-12-15] MEDS ORDERED: LOPE-114 PO (02:03)
[2020-12-15] MEDS: ACETAMINOPHEN 325 MG TABLET PO PRN ×2 (04:26→12:19)
[2020-12-15 06:26] VITALS: BP 130/77
[2020-12-15] MEDS ORDERED: ALENDRONATE 70 MG TABLET PO SCH (06:30)
[2020-12-15] MEDS: PANTOPRAZOLE 40MG TABLET PO SCH ×2 (06:39→16:26)
[2020-12-15] MEDS ORDERED: BISACODYL 10 MG SUPP PR ONE (07:30)
[2020-12-15] MEDS: SERTRALINE 100MG TABLET PO SCH (08:23)
[2020-12-15] MEDS: LACTOBACILLUS CHEW TABLET PO SCH ×3 (08:23→22:01)
[2020-12-15] MEDS: metFORMIN XR 500 MG TAB.ER.24H PO SCH ×2 (08:23→22:01)
[2020-12-15] MEDS: ASPIRIN 81 MG TABLET EC PO SCH (08:24)
[2020-12-15] MEDS: MULTIVITAMINS/MINERALS TABLET PO SCH (08:24)
[2020-12-15] MEDS: SENNA/DOCUSATE TABLET PO SCH (08:24)
[2020-12-15] MEDS: AMIODARONE 200 MG TABLET PO SCH ×2 (08:24→22:01)
[2020-12-15] MEDS ORDERED: LACTOBACILLUS CHEW TABLET PO SCH (09:00)
[2020-12-15] MEDS: BOSWELLIA SERRA T HOMEMEDPO SCH (09:00)
[2020-12-15] MEDS: D3 HOMEMEDPO SCH (09:00)
[2020-12-15] MEDS: VITAMIN D3 HOMEMEDPO SCH (09:00)
[2020-12-15] MEDS: GLUCOSAMINE HOMEMEDPO SCH (09:00)
[2020-12-15] MEDS: CALCIUM CARBONATE HOMEMEDPO SCH (09:00)
[2020-12-15] MEDS: ZONISAMIDE 50 MG CAPSULE PO SCH (11:02)
[2020-12-15 12:27] VITALS: BP 134/68
[2020-12-15] MEDS ORDERED: RIVAROXABAN 20 MG TABLET PO SCH (17:00)
[2020-12-15] MEDS ORDERED: MAGNESIUM CITRATE 300ML ORAL SOL PO ONE (18:00)
[2020-12-15 19:54] VITALS: BP 150/69
[2020-12-15] MEDS: ATORVASTATIN 20 MG TABLET PO SCH (22:01)
[2020-12-15] MEDS ORDERED: TEMAZEPAM 15 MG CAPSULE PO ONE (23:00)
[2020-12-16 01:34] VITALS: BP 146/64
[2020-12-16 06:57] VITALS: BP 128/72
[2020-12-16] MEDS: VITAMIN D3 HOMEMEDPO SCH (09:00)
[2020-12-16] MEDS: SENNA/DOCUSATE TABLET PO SCH (09:00)
[2020-12-16] MEDS: CALCIUM CARBONATE HOMEMEDPO SCH (09:00)
[2020-12-16] MEDS: D3 HOMEMEDPO SCH (09:00)
[2020-12-16] MEDS: BOSWELLIA SERRA T HOMEMEDPO SCH (09:00)
[2020-12-16] MEDS: GLUCOSAMINE HOMEMEDPO SCH (09:00)
[2020-12-16] MEDS: AMIODARONE 200 MG TABLET PO SCH (09:26)
[2020-12-16] MEDS: LACTOBACILLUS CHEW TABLET PO SCH (09:26)
[2020-12-16] MEDS: PANTOPRAZOLE 40MG TABLET PO SCH (09:26)
[2020-12-16] MEDS: ZONISAMIDE 50 MG CAPSULE PO SCH (09:26)
[2020-12-16] MEDS: metFORMIN XR 500 MG TAB.ER.24H PO SCH (09:26)
[2020-12-16] MEDS: ASPIRIN 81 MG TABLET EC PO SCH (09:26)
[2020-12-16] MEDS: MULTIVITAMINS/MINERALS TABLET PO SCH (09:26)
[2020-12-16] MEDS: SERTRALINE 100MG TABLET PO SCH (09:27)
[2020-12-16] MEDS ORDERED: AMIO100T4 PO (10:52)
[2020-12-16 13:06] VITALS: BP 132/70
== END 2020-12-16 15:20 | disposition home or self-care (01) ==
LOC: ED 17:46 → EDIP 20:51 → 4WST 21:57 → DCLOUNGE 12-16 15:07
PROVIDERS: ADMIT Family Medicine; ATTEND Hospitalist
DX: R55 Syncope and collapse (principal); R53.1 Weakness; E86.0 Dehydration; J96.91 Respiratory failure, unspecified with hypoxia; J44.1 Chronic obstructive pulmonary disease with (acute) exacerbation; D75.89 Other specified diseases of blood and blood-forming organs; K21.9 Gastro-esophageal reflux disease without esophagitis; E86.1 Hypovolemia; I25.10 Atherosclerotic heart disease of native coronary artery without angina pectoris; I65.29 Occlusion and stenosis of unspecified carotid artery; I48.20 Chronic atrial fibrillation, unspecified; D68.69 Other thrombophilia; I10 Essential (primary) hypertension; E11.9 Type 2 diabetes mellitus without complications; M81.0 Age-related osteoporosis without current pathological fracture; E78.5 Hyperlipidemia, unspecified; F32.9 Major depressive disorder, single episode, unspecified; Z86.718 Personal history of other venous thrombosis and embolism; Z86.73 Personal history of transient ischemic attack (TIA), and cerebral infarction without residual deficits; Z79.899 Other long term (current) drug therapy; Z90.710 Acquired absence of both cervix and uterus
CPT/HCPCS: 36415; 70450; 71045; 74018; 80053; 81003; 82607; 83880; 85025; 93005; 93880; 96360; 96361; 97161; 99285; G0378; J7030; J7512

== ENCOUNTER 2020-12-23 17:31 | Emergency (ER) | payer OTHER ==
[~2020-12-23] VITALS: Ht 167.6 cm; Wt 95.5 kg
[~2020-12-23 17:31] MED LIST changes: +ACET500T76 PO; +AMIO100T4 PO; +BACL-19 PO; +CHOL500051 PO; +GABA-826 PO; +GLUC-165 PO; +LEVO100V8 PO; +LOPE-114 PO; +OXYC5TAB2 PO; +PROP1DRO6 OTIC
--- NOTE | 2020-12-23 17:41 | NUR ---
PROGRAM ADMINISTRATOR: PT PLACED ON 2L OXYGEN VIA NC, PT DID NOT BRING HOME OXYGEN WITH HER.
--- NOTE | 2020-12-23 18:47 | NUR ---
CONFERENCE MANAGER: PT TO ROOM FROM LOBBY
[2020-12-23] MEDS ORDERED: HYDROcodone/APAP 5/325 TABLET PO ONE (19:30)
[2020-12-23] MEDS ORDERED: HYDROcodone/APAP 5/325 TABLET ONE (19:34)
--- NOTE | 2020-12-23 19:48 | NUR ---
REPORT TO DARIA LAUREN
--- NOTE | 2020-12-23 19:49 | NUR ---
Report received and care assumed. Pt given pain medication by previous RN. Per report MD is awaiting records from [facility] before d/c to home decision made.
--- NOTE | 2020-12-23 20:25 | NUR ---
Pt states pain is unchanged since pain remedy developer on reassessment with rated pain as 8-9/10 at this time. VS reassessed and found to be stable from last set noted on monitor. Pt room without a call light, so TV channel changed to a station pt likes by hand and door remains open and directly across from RN charting area for direct visualization most of the time. Awaiting decision by MD for plan of care.
--- NOTE | 2020-12-23 20:44 | NUR ---
PA student at bedside for recheck a this time.
--- NOTE | 2020-12-23 21:14 | NUR ---
Pt up for d/c, awaiting paperwork. shipping and receiving clerk at bedside currently.
[2020-12-23 21:36] VITALS: BP 114/50
== END 2020-12-23 21:38 | disposition home or self-care (01) ==
LOC: ED 18:01
DX: S39.012A Strain of muscle, fascia and tendon of lower back, initial encounter (principal); I10 Essential (primary) hypertension; E11.9 Type 2 diabetes mellitus without complications; I48.91 Unspecified atrial fibrillation; E78.5 Hyperlipidemia, unspecified; Z85.828 Personal history of other malignant neoplasm of skin; Z87.891 Personal history of nicotine dependence; X58.XXXA Exposure to other specified factors, initial encounter; Y93.89 Activity, other specified; Y92.89 Other specified places as the place of occurrence of the external cause; Y99.8 Other external cause status
CPT/HCPCS: 99283

== ENCOUNTER 2021-01-16 12:33 | Emergency (ER) | payer MEDICARE, OTHER ==
[~2021-01-16] VITALS: Ht 167.6 cm; Wt 96.3 kg
[~2021-01-16 12:33] MED LIST changes: +BISA10SU4 PR; +FENT1PAT75 TD; +ONDA4TAB7 PO; +OXYC5TAB98 PO; +POLY17PO5 PO; +SENN-211 PO
[2021-01-16] MEDS ORDERED: HYDROcodone/APAP 5/325 TABLET PO ONE (15:30)
--- NOTE | 2021-01-16 15:53 | NUR ---
PT TO CT
[2021-01-16 15:56] VITALS: BP 142/50
[2021-01-16] MEDS ORDERED: HYDROcodone/APAP 5/325 TABLET ONE (16:01)
--- NOTE | 2021-01-16 18:29 | NUR ---
[facility]ORT ARRANGED FOR [id number].
== END 2021-01-16 18:51 | disposition home or self-care (01) ==
LOC: ED 13:19
DX: S52.501A Unspecified fracture of the lower end of right radius, initial encounter for closed fracture (principal); S52.601A Unspecified fracture of lower end of right ulna, initial encounter for closed fracture; M25.531 Pain in right wrist; I10 Essential (primary) hypertension; E78.5 Hyperlipidemia, unspecified; I48.91 Unspecified atrial fibrillation; I25.10 Atherosclerotic heart disease of native coronary artery without angina pectoris; J44.9 Chronic obstructive pulmonary disease, unspecified; Z86.718 Personal history of other venous thrombosis and embolism; W01.0XXA Fall on same level from slipping, tripping and stumbling without subsequent striking against object, initial encounter; Y93.89 Activity, other specified; Y92.89 Other specified places as the place of occurrence of the external cause; Y99.8 Other external cause status
CPT/HCPCS: 29125; 99284

== ENCOUNTER 2021-01-17 13:31 | Emergency (ER) | payer MEDICARE ==
[~2021-01-17] VITALS: Ht 167.6 cm; Wt 101.0 kg
[2021-01-17 13:33] VITALS: BP 135/65
--- NOTE | 2021-01-17 13:44 | NUR ---
PT [facility]. PER EMS PT HAD GLF YESTERDAY AND WAS SEEN HERE FOR R UPPER EXT INJURY. PT NOW REPORTING BILAT LOWER LEG SWELLING. PT STATES BILAT LOWER LEGS ARE TENDER TO PALPATION AND THAT IT IS "SORE" WHEN SHE WALKS. PT RESTING IN [facility], MONITORING IN PLACE, JACKI AT THIS TIME, WCTM.
--- NOTE | 2021-01-17 15:22 | NUR ---
COMPRESSION STOCKINGS APPLIED. PT TEACHING AND DISCHARGE INSTRUCTIONS GIVEN. [facility] AT BEDSIDE TO TAKE PT HOME.
== END 2021-01-17 15:25 | disposition home or self-care (01) ==
LOC: ED 14:16
DX: R60.0 Localized edema (principal); E11.9 Type 2 diabetes mellitus without complications; I48.91 Unspecified atrial fibrillation; I25.10 Atherosclerotic heart disease of native coronary artery without angina pectoris; K21.9 Gastro-esophageal reflux disease without esophagitis; I10 Essential (primary) hypertension; J44.9 Chronic obstructive pulmonary disease, unspecified; E78.5 Hyperlipidemia, unspecified; Z90.49 Acquired absence of other specified parts of digestive tract; Z86.73 Personal history of transient ischemic attack (TIA), and cerebral infarction without residual deficits; Z87.891 Personal history of nicotine dependence
CPT/HCPCS: 93005; 99283